=== PATIENT | male | born 1960 | race Caucasian/White ===

== ENCOUNTER 2020-01-07 11:33 | Emergency (ER) | payer MEDICARE, MEDICAID ==
[~2020-01-07] VITALS: Ht 172.7 cm; Wt 65.9 kg
[~2020-01-07 11:33] MED LIST: OMEP20CA12 PO; RISP2TAB76 PO
[2020-01-07] MEDS ORDERED: DIVA-85 PO (11:52)
[2020-01-07 13:30] VITALS: BP 135/87
[2020-01-07] MEDS ORDERED: ACETAMINOPHEN 500 MG TABLET PO ONE (13:30)
[2020-01-07] MEDS ORDERED: KETOROLAC TROMETHAMINE 30 MG/ML VIAL IM ONE (14:30)
== END 2020-01-07 15:26 | disposition home or self-care (01) ==
LOC: EMS 11:33
DX: S83.92XA Sprain of unspecified site of left knee, initial encounter (principal); S00.03XA Contusion of scalp, initial encounter; K21.9 Gastro-esophageal reflux disease without esophagitis; F20.9 Schizophrenia, unspecified; V03.99XA Pedestrian with other conveyance injured in collision with car, pick-up truck or van, unspecified whether traffic or nontraffic accident, initial encounter; Y93.01 Activity, walking, marching and hiking; Y92.89 Other specified places as the place of occurrence of the external cause; Y99.8 Other external cause status
CPT/HCPCS: 70450; 73562; 96372; 99284; J1885